=== PATIENT | female | born 1985 | race American Indian/Alaskan Native ===

== ENCOUNTER 2016-07-23 08:38 | Emergency (ER) | payer MEDICAID ==
[2016-07-23 12:50] LABS: Hematocrit 35.3 % (30.3-42.9); Hemoglobin 12.1 gm/dl (10.1-14.3); Mean Corpuscular HGB Conc 34 % (30-34); Mean Corpuscular Hemoglobin 27 pg (28-32); Mean Corpuscular Volume 77 fl (79-97); Platelet Count 212 K/mm3 (140-440); Red Blood Count 4.56 M/mm3 (3.65-5.03); Red Cell Distribution Width 14.9 % (13.2-15.2); White Blood Count 9.8 K/mm3 (4.5-11.0)
[2016-07-23 12:56] LABS: Alanine Aminotransferase 14 units/L (7-56); Albumin 4.1 g/dL (3.9-5); Albumin/Globulin Ratio 1.5 %; Alkaline Phosphatase 60 units/L (35-129); Anion Gap 15 mmol/L; BUN/Creatinine Ratio 13.33; Bilirubin,Total 0.2 mg/dL (0.1-1.2); Blood Urea Nitrogen 8 mg/dL (7-17); Calcium 9.4 mg/dL (8.4-10.2); Carbon Dioxide 23 mmol/L (22-30); Chloride 103.8 mmol/L (98-107); Glucose 92 mg/dL (65-100); Potassium 3.9 mmol/L (3.6-5.0); Sodium 138 mmol/L (137-145); Total Protein 6.8 g/dL (6.3-8.2)
[2016-07-23] MEDS ORDERED: REGLAN IV ONE (13:12)
[2016-07-23] MEDS ORDERED: NACL 0.9% 500 ML 500 ML IV ONE (13:12)
[2016-07-23] MEDS ORDERED: FIORICET PO ONE (13:12)
[2016-07-23] MEDS ORDERED: BENADRYL IV ONE (13:12)
[2016-07-23] MEDS ORDERED: BENADRYL IM ONE (13:20)
[2016-07-23 13:34] LABS: Bacteria,Urine 1+ /HPF (Negative); Bilirubin,Urine NEG (Negative); Blood,Urine SM (Negative); Ketones,Urine NEG (Negative); Leukocyte Esterase,Urine NEG (Negative); Mucus,Urine FEW /HPF; Nitrite,Urine NEG (Negative); Protein,Urine <15 mg/dL mg/dL (Negative); Urobilinogen,Urine < 2.0 mg/dL (<2.0)
--- NOTE | 2016-07-23 14:18 | Cat Scan Report ---
CT scan of head without contrast: History pleuritic. Findings: Ventricles are normal in size and midline in location. No evidence of acute ischemia, hemorrhage or mass. No extra axial fluid collection. Normal brainstem and cerebellum. Normal sinuses and mastoid air cells. Impression: No acute intracranial abnormality.
--- NOTE | 2016-07-23 14:39 | Emergency Department Report ---
Entered by TREASURE GARCIA, acting as scribe for ELIAZAR SIDDIQUI PA. ED Headache HPI - General Chief Complaint: Headache Stated Complaint: HEADACHE Time Seen by Provider: 07/23/16 11:39 Source: patient Exam Limitations: no limitations - History of Present Illness Initial Comments: 31 year old female with a PMHx of HTN, presents to the ED c/o a headache that began 1 week ago. Symptoms are aggravated with movement and exposure to light, no alleviating factors. Pt states that she had a a cold a week prior to the onset of her headache. Associated symptoms include right side facial and ear pain, nausea, neck stiffness,sinus pressure and coughing, but she denies vomiting, fever, and chills. She notes that she is compliant with her HTN medication. pt states that neck pain resolved several days ago LNMP 07/23/2016. Timing/Duration: 1 week Quality: mild, moderate Recent Head Trauma: no recent headache/trauma Modifying Factors: improves with: exposure to light (worsened), movement ( worsened) Associated Symptoms: facial pain (right side), nausea/vomiting, stiff neck, other (eye pain). denies: fever/chills Allergies/Adverse Reactions: Allergies No Known Allergies Allergy (Unverified 12/19/15 13:03) Home Medications: Ambulatory Orders Lisinopril [Zestril TAB] 10 mg PO QDAY 01/21/16 traMADol [Ultram] 50 mg PO Q6HR PRN #20 tablet 01/21/16 Butalb/Acetamin/Caff 50-325-40 [Fioricet] 1 tab PO Q6HR PRN #15 tab 07/23/16 Prochlorperazine [Compazine] 10 mg PO ONCE #15 tablet 07/23/16 ED Review of Systems Comment: All other systems reviewed and negative Constitutional: denies: chills, fever Eyes: eye pain (bilaterally), vision change ENT: ear pain (right ear) Respiratory: cough Gastrointestinal: nausea. denies: vomiting Musculoskeletal: other (right side facial pain) Neurological: headache (agrravated by light) ED Past Medical Hx - Past Medical History Previous Medical History?: Yes Hx Hypertension: Yes Additional medical history: Left ankle sprain, Vaginal delivery x 3 - Surgical History Past Surgical History?: No - Social History Smoking Status: Never Smoker Substance Use Type: Alcohol - Medications Home Medications: Home Medications Medication Instructions Recorded Confirmed Last Taken Type Lisinopril [Zestril TAB] 10 mg PO QDAY 01/21/16 01/21/16 01/21/16 History traMADol [Ultram] 50 mg PO Q6HR PRN #20 tablet 01/21/16 Unknown Rx Butalb/Acetamin/Caff 50-325-40 1 tab PO Q6HR PRN #15 tab 07/23/16 Unknown Rx [Fioricet] Prochlorperazine [Compazine] 10 mg PO ONCE #15 tablet 07/23/16 Unknown Rx ED Physical Exam - General Limitations: No Limitations General appearance: alert, in no apparent distress - Head Head exam: Present: atraumatic, normocephalic - Eye Eye exam: Present: normal appearance, PERRL, EOMI - ENT ENT exam: Present: mucous membranes moist, TM's normal bilaterally, normal external ear exam, other (maxillary tenderness on percussion) - Expanded ENT Exam Expanded Throat exam: Positive: normal inspection. Negative: tonsillar erythema, tonsillar exudate - Neck Neck exam: Present: normal inspection, full ROM (supple). Absent: tenderness, meningismus, lymphadenopathy, thyromegaly - Respiratory Respiratory exam: Present: normal lung sounds bilaterally. Absent: respiratory distress, wheezes, rales, rhonchi, stridor - Cardiovascular Cardiovascular Exam: Present: regular rate, normal rhythm. Absent: systolic murmur, diastolic murmur, rubs, gallop - Back Exam Back exam: Present: normal inspection - Neurological Exam Neurological exam: Present: alert, oriented X3, CN II-XII intact, normal gait, other - Psychiatric Psychiatric exam: Present: normal affect, normal mood - Skin Skin exam: Present: warm, dry, intact ED Course Vital Signs 07/23/16 07/23/16 09:21 13:45 Temperature 98.3 F Pulse Rate 88 Respiratory 18 20 Rate Blood Pressure 157/99 O2 Sat by Pulse 90 Oximetry - Reevaluation(s) Reevaluation #1: 07/23/16 13:27 pt resting comfortably Reevaluation #2: 07/23/16 14:27 pt pain free and resting comfortably ED Medical Decision Making - Lab Data Result diagrams: 07/23/16 12:22 07/23/16 12:22 Lab Results 07/23/16 07/23/16 Range/Units 12:22 12:22 WBC 9.8 (4.5-11.0) K/mm3 RBC 4.56 (3.65-5.03) M/mm3 Hgb 12.1 (10.1-14.3) gm/dl Hct 35.3 (30.3-42.9) % MCV 77 L (79-97) fl MCH 27 L (28-32) pg MCHC 34 (30-34) % RDW 14.9 (13.2-15.2) % Plt Count 212 (140-440) K/mm3 Sodium 138 (137-145) mmol/L Potassium 3.9 (3.6-5.0) mmol/L Chloride 103.8 (98-107) mmol/L Carbon Dioxide 23 (22-30) mmol/L Anion Gap 15 mmol/L BUN 8 (7-17) mg/dL Creatinine 0.6 L (0.7-1.2) mg/dL Estimated GFR > 60 ml/min BUN/Creatinine Ratio 13.33 % Glucose 92 (65-100) mg/dL Calcium 9.4 (8.4-10.2) mg/dL Total Bilirubin 0.2 (0.1-1.2) mg/dL AST 16 (5-40) units/L ALT 14 (7-56) units/L Alkaline Phosphatase 60 (35-129) units/L Total Protein 6.8 (6.3-8.2) g/dL Albumin 4.1 (3.9-5) g/dL Albumin/Globulin Ratio 1.5 % - Radiology Data Radiology results: report reviewed Ct [facility] ED Disposition Clinical Impression: Headache Disposition: DISCHARGED TO HOME OR SELFCARE Is pt being admited?: No Condition: Stable Instructions: Acute Headache (ED) Prescriptions: Butalb/Acetamin/Caff 50-325-40 [Fioricet] 1 tab PO Q6HR PRN #15 tab PRN Reason: Headache Prochlorperazine [Compazine] 10 mg PO ONCE #15 tablet Referrals: PRIMARY CARE, [Primary Care Provider] - 3-5 Days Forms: Work/School Release Form(ED) This documentation as recorded by the JOSE quintero JASMINE,accurately reflects the service I personally performed and the decisions made by me,ELIAZAR SIDDIQUI PA.
[2016-07-23 14:53] VITALS: BP 143/79
== END 2016-07-23 14:53 | disposition home or self-care (01) ==
LOC: ED 08:38
DX: R51 Headache (principal); I10 Essential (primary) hypertension
CPT/HCPCS: 36415; 70450; 80053; 81001; 81025; 85027; 96372; 99284; J1200